=== PATIENT | male | born 1970 | race Hispanic/Latino ===

== ENCOUNTER 2017-11-30 16:51 | Emergency (ER) | payer OTHER ==
[~2017-11-30] VITALS: Ht 170.2 cm; Wt 75.4 kg
[2017-11-30 17:19] VITALS: BP 158/89
[2017-11-30] MEDS ORDERED: DELTASONE20 MG PO (17:20)
[2017-11-30] MEDS ORDERED: TORADOL PO (17:20)
[2017-11-30] MEDS ORDERED: AMOXICILLIN500 MG PO (17:20)
== END 2017-11-30 17:25 | disposition home or self-care (01) | DRG 153 ==
LOC: ED 16:51
DX: J02.9 Acute pharyngitis, unspecified (principal); R50.9 Fever, unspecified

== ENCOUNTER 2023-05-09 08:52 | Emergency (ER) | payer OTHER ==
[~2023-05-09] VITALS: Ht 170.2 cm; Wt 74.8 kg
[~2023-05-09 08:52] MED LIST: AMOXICILLIN500 MG PO; DELTASONE20 MG PO; TORADOL PO
[2023-05-09 09:01] VITALS: BP 164/84
[2023-05-09 09:20] VITALS: BP 161/92
[2023-05-09 09:40] VITALS: BP 140/86
[2023-05-09] MEDS ORDERED: AMOXICILLIN500 M2 PO (09:59)
[2023-05-09 10:00] VITALS: BP 148/92
[2023-05-09 10:06] VITALS: BP 148/92
== END 2023-05-09 10:14 | disposition home or self-care (01) | DRG 153 ==
LOC: ED 08:52
DX: J02.0 Streptococcal pharyngitis (principal); Z20.822 Contact with and (suspected) exposure to COVID-19